=== PATIENT | female | born 1990 | race African-American/Black ===

== ENCOUNTER 2023-06-22 01:18 | Emergency (ER) | payer OTHER, SELFPAY ==
[2023-06-22] MEDS ORDERED: Acetaminophen 500 MG TAB ONE (02:07)
[2023-06-22] MEDS ORDERED: Ibuprofen 200 MG TAB ONE (02:07)
[2023-06-22 03:12] LABS: SARS-CoV-2 NAA Rapid Test Not Detected (NotDetected)
== END 2023-06-22 03:25 | disposition home or self-care (01) ==
LOC: CSHERS 01:18
DX: J10.1 Influenza due to other identified influenza virus with other respiratory manifestations (principal); F17.210 Nicotine dependence, cigarettes, uncomplicated; Z20.822 Contact with and (suspected) exposure to COVID-19
CPT/HCPCS: 71045; 99283

== ENCOUNTER 2024-05-08 18:40 | Emergency (ER) | payer OTHER, SELFPAY | END 2024-05-08 21:11 | disposition home or self-care (01) | LOC: CSHERS 18:40 | DX: S90.31XA Contusion of right foot, initial encounter (principal); S90.121A Contusion of right lesser toe(s) without damage to nail, initial encounter; F17.210 Nicotine dependence, cigarettes, uncomplicated; X58.XXXA Exposure to other specified factors, initial encounter | CPT/HCPCS: 99283 ==

== ENCOUNTER 2024-07-29 12:50 | Emergency (ER) | payer MEDICAID, OTHER | END 2024-07-29 16:16 | disposition home or self-care (01) | LOC: CSHERS 12:50 | DX: O99.611 Diseases of the digestive system complicating pregnancy, first trimester (principal); O99.332 Smoking (tobacco) complicating pregnancy, second trimester; F17.210 Nicotine dependence, cigarettes, uncomplicated; Z3A.14 14 weeks gestation of pregnancy | CPT/HCPCS: 99283 ==